=== PATIENT | female | born 1990 | race Caucasian/White ===

== ENCOUNTER 2022-12-10 08:18 | Inpatient (IN) ==
[2022-12-10] MEDS ORDERED: ONDANSETRON 4 MG/2 ML VIAL IV STA ×2 (08:56→11:29)
[2022-12-10] MEDS ORDERED: SODIUM CHLORIDE 0.9% 1,000 ML IV STA (08:56)
[2022-12-10 09:05] LABS: Mucus,Urine Many /LPF (Occasional); RBC,Urine 4 /HPF (0-4); Squamous Epithelial Cell,Urine Occasional /HPF (0-10)
[2022-12-10 09:06] LABS: Bilirubin,Urine Large mg/dL (Negative); Blood, Urine Negative (Negative); Glucose,Urine (UA) Negative (Negative); Ketones,Urine Negative (Negative); Nitrite,Urine Negative (Negative); Protein,Urine 30 mg/dL (Negative); Urine Appearance Clear (Clear); Urine Color Amber (Yellow); Urine Specific Gravity 1.025 (1.001-1.035); Urine pH 6.5 (4.5-8.0)
[2022-12-10 09:22] LABS: Basophils % 0.6 % (0.0-0.8); Eosinophils % 0.3 % (0.00-10.9); Hematocrit 40.4 VOL% (35.7-47.0); Hemoglobin 14.2 GM/DL (12.0-16.0); Immature Granulocytes % 0.2 %; Immature Granulocytes Absolute 0.01 #; Lymphocytes # 1.1 10*3/uL (1.4-4.0); Lymphocytes % 16.9 % (21.3-54.2); Mean Corpuscular HGB Conc 35.1 GM/DL (32-36); Mean Corpuscular Volume 86.7 FL (87-102); Mean Platelet Volume 10.5 FL (9.6-12.0); Monocytes # 0.4 10*3/uL (0.11-0.8); Monocytes % 5.6 % (1.7-12.7); Neutrophils % 76.4 % (38.7-73.9); Platelet Count 289 T/CUMM (130-400); Red Blood Count 4.66 MC/CUMM (3.8-5.5); Red Cell Distribution Width 12.6 % (9.3-17.3); White Blood Count 6.4 T/CUMM (4-12)
[2022-12-10 09:39] LABS: Albumin 4.6 G/DL (3.4-5.0); Bilirubin,Total 3.8 MG/DL (0.20-1.00); Calcium 9.9 MG/DL (8.5-10.1); Potassium 3.7 MMOL/L (3.5-5.1); Total Protein 7.3 G/DL (6.4-8.2)
[2022-12-10] MEDS ORDERED: KETOROLAC 30 MG/1 ML VIAL IV STA (10:46)
[2022-12-10] MEDS ORDERED: HYDROmorphone 1 MG/1 ML SYRINGE IV STA (11:29)
[2022-12-10] MEDS: MORPHINE 2 MG/1 ML SYRINGE IV PRN ×2 (15:17→21:35)
[2022-12-10] MEDS: ONDANSETRON 4 MG/2 ML VIAL IV PRN ×2 (15:17→21:37)
[2022-12-10] MEDS: LACTATED RINGERS 1,000 ML IV SCH (15:18)
[2022-12-10] MEDS: MEROPENEM 500 MG in SODIUM CHLORIDE 0.9% 100 ML IV SCH (21:06)
[2022-12-10] MEDS: CIPROFLOXACIN INJ 200 MG/100 ML PREMIX IV SCH (21:46)
[2022-12-11] MEDS: MEROPENEM 500 MG in SODIUM CHLORIDE 0.9% 100 ML IV SCH ×2 (02:37→11:00)
[2022-12-11 06:09] LABS: Basophils % 0.4 % (0.0-0.8); Eosinophils # 0.1 10*3/uL (0.0-0.87); Eosinophils % 1.7 % (0.00-10.9); Hematocrit 34.8 VOL% (35.7-47.0); Immature Granulocytes % 0.2 %; Immature Granulocytes Absolute 0.01 #; Lymphocytes % 43.2 % (21.3-54.2); Mean Corpuscular HGB Conc 34.5 GM/DL (32-36); Mean Corpuscular Volume 85.9 FL (87-102); Mean Platelet Volume 10.5 FL (9.6-12.0); Monocytes # 0.4 10*3/uL (0.11-0.8); Monocytes % 7.6 % (1.7-12.7); Neutrophils % 46.9 % (38.7-73.9); Platelet Count 206 T/CUMM (130-400); Red Blood Count 4.05 MC/CUMM (3.8-5.5); Red Cell Distribution Width 12.6 % (9.3-17.3); White Blood Count 4.6 T/CUMM (4-12)
[2022-12-11 06:28] LABS: Albumin 3.4 G/DL (3.4-5.0); Bilirubin,Total 4.8 MG/DL (0.20-1.00); Osmolality,Calculated 276.4 MOS/KG (273-304); Potassium 3.6 MMOL/L (3.5-5.1); Total Protein 5.6 G/DL (6.4-8.2)
[2022-12-11] MEDS: LACTATED RINGERS 1,000 ML IV SCH ×2 (07:26→18:34)
[2022-12-11] MEDS ORDERED: INDOMETHACIN SUPP 50 MG SUPP RECTAL ONE (08:12)
[2022-12-11] MEDS ORDERED: LACTATED RINGERS 1,000 ML IV SCH (08:30)
[2022-12-11] MEDS ORDERED: PANTOPRAZOLE 40 MG TABLET PO SCH (09:00)
[2022-12-11 09:02] LABS: PT Patient Result 11.2 SECS (10.1-12.1)
[2022-12-11] MEDS ORDERED: LIDOCAINE 2% 5 ML VIAL ONE (09:34)
[2022-12-11] MEDS ORDERED: SUCCINYLCHOLINE 200 MG/10 ML VIAL ONE (09:34)
[2022-12-11] MEDS ORDERED: propofoL 200 MG/20 ML VIAL IV ONE (09:34)
[2022-12-11] MEDS ORDERED: MIDAZOLAM 2 MG/2 ML VIAL ONE (09:34)
[2022-12-11] MEDS ORDERED: fentaNYL 100 MCG/2 ML VIAL ONE (09:35)
[2022-12-11] MEDS ORDERED: KETOROLAC 15 MG/1 ML VIAL IV PRN (09:45)
[2022-12-11] MEDS ORDERED: HYDROmorphone 1 MG/1 ML SYRINGE IV PRN ×2 (09:45)
[2022-12-11] MEDS ORDERED: ONDANSETRON 4 MG/2 ML VIAL ONE (09:51)
[2022-12-11] MEDS ORDERED: SEVOFLURANE 1 UNIT/15 MINUTE INH ONE (10:32)
[2022-12-11] MEDS: CIPROFLOXACIN INJ 200 MG/100 ML PREMIX IV SCH ×2 (12:25→20:42)
[2022-12-11] MEDS: PANTOPRAZOLE 40 MG VIAL IV SCH ×2 (12:25→20:42)
[2022-12-12 05:19] LABS: Basophils % 0.9 % (0.0-0.8); Eosinophils # 0.1 10*3/uL (0.0-0.87); Eosinophils % 2.3 % (0.00-10.9); Hematocrit 33.4 VOL% (35.7-47.0); Hemoglobin 11.5 GM/DL (12.0-16.0); Immature Granulocytes % 0.2 %; Immature Granulocytes Absolute 0.01 #; Lymphocytes # 1.8 10*3/uL (1.4-4.0); Lymphocytes % 39.7 % (21.3-54.2); Mean Corpuscular HGB Conc 34.4 GM/DL (32-36); Mean Corpuscular Volume 87.7 FL (87-102); Mean Platelet Volume 10.8 FL (9.6-12.0); Monocytes # 0.3 10*3/uL (0.11-0.8); Monocytes % 6.8 % (1.7-12.7); Neutrophils % 50.1 % (38.7-73.9); Platelet Count 207 T/CUMM (130-400); Red Blood Count 3.81 MC/CUMM (3.8-5.5); Red Cell Distribution Width 12.6 % (9.3-17.3); White Blood Count 4.4 T/CUMM (4-12)
[2022-12-12] MEDS: LACTATED RINGERS 1,000 ML IV SCH ×2 (05:23→20:58)
[2022-12-12 05:40] LABS: Albumin 3.1 G/DL (3.4-5.0); Bilirubin,Total 1.8 MG/DL (0.20-1.00); Calcium 8.7 MG/DL (8.5-10.1); Osmolality,Calculated 279.1 MOS/KG (273-304); Potassium 3.7 MMOL/L (3.5-5.1); Total Protein 5.6 G/DL (6.4-8.2)
[2022-12-12 05:43] LABS: Free T4 (Free Thyroxine) 1.34 NG/DL (0.76-1.46); Thyroid Stimulating Hormone 0.962 uIU/ml (0.358-3.74)
[2022-12-12] MEDS: PANTOPRAZOLE 40 MG VIAL IV SCH ×2 (09:29→21:00)
[2022-12-12] MEDS: CIPROFLOXACIN INJ 200 MG/100 ML PREMIX IV SCH ×2 (09:29→20:59)
[2022-12-13 05:13] LABS: Basophils % 0.4 % (0.0-0.8); Eosinophils # 0.2 10*3/uL (0.0-0.87); Eosinophils % 3.1 % (0.00-10.9); Hematocrit 32.3 VOL% (35.7-47.0); Hemoglobin 11.2 GM/DL (12.0-16.0); Immature Granulocytes % 0.2 %; Immature Granulocytes Absolute 0.01 #; Lymphocytes # 2.8 10*3/uL (1.4-4.0); Lymphocytes % 51.6 % (21.3-54.2); Mean Corpuscular HGB Conc 34.7 GM/DL (32-36); Mean Corpuscular Volume 86.8 FL (87-102); Mean Platelet Volume 11.1 FL (9.6-12.0); Monocytes # 0.4 10*3/uL (0.11-0.8); Monocytes % 7.6 % (1.7-12.7); Neutrophils % 37.1 % (38.7-73.9); Platelet Count 207 T/CUMM (130-400); Red Blood Count 3.72 MC/CUMM (3.8-5.5); Red Cell Distribution Width 12.4 % (9.3-17.3); White Blood Count 5.4 T/CUMM (4-12)
[2022-12-13 05:33] LABS: Bilirubin,Total 0.9 MG/DL (0.20-1.00); Calcium 8.4 MG/DL (8.5-10.1); Osmolality,Calculated 278.3 MOS/KG (273-304); Potassium 3.3 MMOL/L (3.5-5.1); Total Protein 5.5 G/DL (6.4-8.2)
[2022-12-13 05:49] LABS: Band Neutrophils 1 % (0-10); Eosinophils 4 % (0-10); Lymphocytes 44 % (20-55); Total Cells Counted 100
[2022-12-13 05:50] LABS: Microcytosis Slight; Platelet Estimate Normal
[2022-12-13] MEDS ORDERED: INDOCYANINE GREEN 25 MG VIAL IV ONE (06:00)
[2022-12-13] MEDS ORDERED: BUPIVACAINE MPF 0.25% 10 ML VIAL ONE (06:05)
[2022-12-13] MEDS ORDERED: TISSUE ADHESIVE 1 EACH APPLICATOR TOP ONE (06:05)
[2022-12-13] MEDS ORDERED: LIDOCAINE 1%/EPI INJ 20 ML VIAL ONE (06:06)
[2022-12-13] MEDS ORDERED: fentaNYL 100 MCG/2 ML VIAL ONE (06:51)
[2022-12-13] MEDS ORDERED: ACETAMINOPHEN INJ 1,000 MG/100 ML VIAL IV ONE (06:51)
[2022-12-13] MEDS ORDERED: MIDAZOLAM 2 MG/2 ML VIAL ONE (06:51)
[2022-12-13] MEDS ORDERED: ONDANSETRON 4 MG/2 ML VIAL ONE (06:51)
[2022-12-13] MEDS ORDERED: LIDOCAINE 2% 5 ML VIAL ONE (06:51)
[2022-12-13] MEDS ORDERED: SEVOFLURANE 1 UNIT/15 MINUTE INH ONE ×2 (06:51→08:07)
[2022-12-13] MEDS ORDERED: KETOROLAC 30 MG/1 ML VIAL ONE (06:51)
[2022-12-13] MEDS ORDERED: propofoL 200 MG/20 ML VIAL IV ONE (06:51)
[2022-12-13] MEDS ORDERED: ROCURONIUM 50 MG/5 ML VIAL IV ONE (06:51)
[2022-12-13] MEDS ORDERED: ePHEDrine 50 MG/ML VIAL ONE (07:30)
[2022-12-13] MEDS ORDERED: GLYCOPYRROLATE 0.4 MG/2 ML VIAL ONE (07:47)
[2022-12-13] MEDS ORDERED: NEOSTIGMINE 10 MG/10 ML VIAL ONE (07:47)
[2022-12-13] MEDS ORDERED: DEXAMETHASONE 4 MG/1 ML VIAL ONE (07:49)
[2022-12-13] MEDS ORDERED: FAMOTIDINE 20 MG/2 ML VIAL IV ONE (08:00)
[2022-12-13] MEDS ORDERED: ONDANSETRON 4 MG/2 ML VIAL IV PRN (08:31)
[2022-12-13] MEDS: HYDROmorphone 1 MG/1 ML SYRINGE IV PRN ×2 (08:32→08:49)
[2022-12-13] MEDS: LACTATED RINGERS 1,000 ML IV SCH (08:48)
[2022-12-13] MEDS ORDERED: PANTOPRAZOLE 40 MG TABLET PO SCH (09:00)
[2022-12-13] MEDS ORDERED: PROPRANOLOL 20 MG TABLET PO SCH (09:00)
[2022-12-13 09:19] VITALS: BP 121/71
[2022-12-13] MEDS ORDERED: POTASSIUM CHLORIDE 20 MEQ TABLET PO ONE (11:07)
== END 2022-12-13 13:05 | disposition home or self-care (01) | DRG 418 ==
LOC: N.ED 08:18 → SUATTDRO 13:44 → N.EDINP 13:44 → N.2E 15:31
PROVIDERS: ADMIT Internal Medicine Geriatric Medicine; ATTEND Hospitalist
PROC: ERCPWSP (ICD-10-PCS; 2022-12-11 08:50)